=== PATIENT | female | born 1955 | race Caucasian/White ===

== ENCOUNTER 2017-05-01 11:59 | Day surgery (SDC) | payer BC, OTHER ==
[~2017-05-01 11:59] MED LIST: BENICAR20 MG PO; CIPRO 500MG TA500 MG PO; FLAGYL500 MG PO; LOSARTAN POTAS100 MG PO; ZOFRAN ODT4 MG PO; ZOFRAN4 MG PO
--- NOTE | 2017-05-01 13:15 | Operative Note ---
Colonoscopy ([facility]) Procedure date: 05/01/17 Date of : 53 Procedure:Colonoscopy Colonoscopy with cold snare polypectomy Indications: Mrs. Martinez is a 61-year-old female who is here for follow-up screening/ surveillance colonoscopy. She did undergo colonoscopy at age 49, 12 years ago which was normal. She reports no abdominal pain, weight loss, change in her bowel habits or rectal bleeding. She does have a strong family history of cancer but is on certain of any family history of colon cancer. Performing Provider: Jacinta Hess MD Referrring Provider: Mik Delaney M.D. Sedation: Fentanyl 100 mg IV/Versed 7 mg IV Procedure: Prior to the procedure, a history and physical exam was performed, and patient medications and allergies were reviewed. The risks and benefits of the procedure and the sedation options and risks were discussed with the patient. All questions were answered and informed consent was obtained. Patient identification and proposed procedure were verified by the physician and the nurse. The patient was placed in a left lateral decubitus position. Throughout the procedure, the patient's blood pressure, pulse, and oxygen saturations were monitored continuously. Findings: On digital rectal examination there was normal rectal tone. There were no external hemorrhoids. The colonoscope was introduced through the anal canal to the rectum and advanced to the cecum. The ileocecal valve and appendiceal orifice were identified. The scope was advanced a short distance into the ileum which appeared grossly normal. The scope was then withdrawn into the colon. There was a 78 mm polyp in the cecum removed via cold snare polypectomy. The remaining cecum, ascending, transverse, descending, sigmoid and rectum were grossly normal. There were no mucosal abnormalities identified. Upon retroflexion within the rectum there were grade 1 internal hemorrhoids. Impressions: 1. Cecal polyp 2. Grade 1 internal hemorrhoids Recommendations: I will follow up the polyp pathology and recommend repeat colonoscopy again in 5 years based upon the polyp histology. I would encourage fiber supplementation on a long-term daily maintenance basis. Complications: None EBL (ml): 0 at 1314
[2017-05-01 15:34] VITALS: BP 105/76
== END 2017-05-01 14:15 | disposition home or self-care (01) ==
LOC: SDC 11:59
PROVIDERS: Internal Medicine Gastroenterology
PROC: 0DBH8ZX Excision of Cecum, Via Natural or Artificial Opening Endoscopic, Diagnostic (ICD-10-PCS; principal; 2017-05-01 13:00)
DX: Z12.11 Encounter for screening for malignant neoplasm of colon (principal); D12.0 Benign neoplasm of cecum; K64.0 First degree hemorrhoids